=== PATIENT | female | born 1970 | race African-American/Black ===

== ENCOUNTER → 2023-11-26 09:05 | Outpatient (REF) | payer OTHER, SELFPAY | LOC: RAD 09:05 | PROVIDERS: ATTENDING PHYSICIAN Otolaryngology; FAMILY PHYSICIAN Physician Assistant Medical | DX: K21.9 Gastro-esophageal reflux disease without esophagitis (principal); R13.14 Dysphagia, pharyngoesophageal phase | CPT/HCPCS: 74221 ==

== ENCOUNTER → 2023-12-25 12:00 | Outpatient (REF) | payer OTHER, SELFPAY | LOC: DHSLP 12:00 | PROVIDERS: ATTENDING PHYSICIAN Otolaryngology; FAMILY PHYSICIAN Physician Assistant Medical | DX: G47.30 Sleep apnea, unspecified (principal); R06.83 Snoring; G47.8 Other sleep disorders | CPT/HCPCS: 95800 ==

== ENCOUNTER → 2024-02-18 15:48 | Outpatient (REF) | payer OTHER, SELFPAY | LOC: HWWDC 15:48 | PROVIDERS: ATTENDING PHYSICIAN Obstetrics & Gynecology; FAMILY PHYSICIAN Physician Assistant Medical | DX: Z12.31 Encounter for screening mammogram for malignant neoplasm of breast (principal) | CPT/HCPCS: 77063; 77067 ==

== ENCOUNTER 2024-10-12 06:27 | Day surgery (SDC) | payer OTHER, SELFPAY | END 2024-10-12 14:58 | disposition home or self-care (01) | LOC: GI 06:27 | PROVIDERS: ATTENDING PHYSICIAN Internal Medicine Gastroenterology | DX: R07.89 Other chest pain (principal); R12 Heartburn; R49.0 Dysphonia; R19.7 Diarrhea, unspecified; K44.9 Diaphragmatic hernia without obstruction or gangrene | CPT/HCPCS: 43239; 88305 ==

== ENCOUNTER → 2025-02-10 15:04 | Outpatient (REF) | payer OTHER, SELFPAY | LOC: HWLAB 15:04 | PROVIDERS: ATTENDING PHYSICIAN Physician Assistant Medical | DX: M25.551 Pain in right hip (principal); M54.50 Low back pain, unspecified | CPT/HCPCS: 72110; 73502 ==